=== PATIENT | female | born 1985 | race Caucasian/White ===

== ENCOUNTER 2020-07-18 03:45 | Emergency (ER) | payer MEDICAID, OTHER ==
[2020-07-18] MEDS ORDERED: Aspirin 81 MG Tab.Chew CHEW ONE (03:56)
[2020-07-18] MEDS ORDERED: Ticagrelor 90 MG Tab PO ONE (03:56)
[2020-07-18] MEDS ORDERED: Sodium Chloride 0.9% 10 ML Syringe FLUSH PRN (03:56)
[2020-07-18] MEDS ORDERED: Famotidine 20 MG/2 ML SDV IVPUSH ONE (03:56)
--- NOTE | 2020-07-18 03:56 | EDM.PDOC ---
ED HPI GENERAL MEDICAL PROBLEM - General Chief Complaint: Chest Pain Stated Complaint: chest pain Time Seen by Provider: 07/18/20 03:45 Source of Information: Reports: Patient, Old Records ([facility] chart/EMR) History Limitations: Reports: No Limitations - History of Present Illness INITIAL COMMENTS - FREE TEXT/NARRATIVE: Patient was brought to the emergency room via private automobile by her boyfriend for evaluation of 03/20 retrosternal chest pressure with radiation to her interscapular region and shoulders bilaterally, and the symptoms waking her up at about midnight this evening. No treatment prior to arrival. The patient denies any heart flutter, dizziness, orthostasis, orthopnea, diaphoresis, paresthesias, recent decreased exercise tolerance, or any other anginal-type symptoms. No recent history of abdominal pain, heartburn, nausea, diarrhea, melena, gross hematochezia, or any food intolerance, including fatty foods, etc.. No recent history of gross hematuria, colic, or other UTI symptoms. The patient also denies any recent fever, cough, wheezing, dyspnea, etc.. Onset: Today, Sudden Onset Date: 07/18/20 Onset Time: 00:00 Duration: Constant Location: Reports: Chest, Back, Upper Extremity, Left, Upper Extremity, Right, Radiates to (As above). Denies: Head, Face, Neck, Abdomen, Pelvis Quality: Reports: Pressure Severity: Moderate Improves with: Reports: None Worsens with: Reports: None Context: Reports: Other (As above). Denies: Sick Contact, Trauma Associated Symptoms: Reports: Chest Pain. Denies: Confusion, Cough, Diaphoresis, Fever/Chills, Headaches, Loss of Appetite, Malaise, Nausea/Vomiting, Seizure, Shortness of Breath, Syncope, Weakness Treatments ENGINEERING MATHEMATICIAN: Reports: Other (see below) (None) Middle Chest Pain Score (Numeric/FACES): 6 - Related Data Allergies Allergy/AdvReac Type Severity Reaction Status Date / Time adhesive Allergy Rash Verified 07/18/20 04:09 Latex, Natural Rubber Allergy Rash Verified 07/18/20 04:09 Home Meds: Home Meds Albuterol [Ventolin HFA] 90 mcg INH Q4HR PRN 04/06/14 [History] Megestrol [Megace] 40 mg PO DAILY 04/06/14 [History] Albuterol/Ipratropium [DuoNeb 3.0-0.5 MG/3 ML] 3 ml INH Q4HR PRN #1 box 07/26/18 [Rx] Budesonide/Formoterol [Symbicort 160-4.5 MCG] 2 puff INH BID 07/18/20 [History] FLUoxetine HCl [Prozac] 1 tab PO DAILY 07/18/20 [History] Fluticasone/Vilanterol [Breo Ellipta 100-25 MCG Inhalation Kit] 1 puff INH DAILY 07/18/20 [History] Liraglutide [Victoza] 0.6 mg SUBCUT DAILY 07/18/20 [History] atorvaSTATin Calcium [Lipitor] 1 tab PO DAILY 07/18/20 [History] metFORMIN [Glucophage] 1,000 mg PO DAILY 07/18/20 [History] Past Medical History HEENT History: Reports: Allergic Rhinitis, Other (See Below). Denies: Cataract, Glaucoma, Hard of Hearing, Impaired Vision, Macular Degeneration, Otitis Media, Retinal Detachment Other HEENT History: Patient wears glasses. No diabetic retinopathy. Cardiovascular History: Reports: High Cholesterol, Hypertension. Denies: Aneurysm, Arrhythmia, Blood Clots/VTE/DVT, CAD, Cardiomyopathy, Heart Failure, Heart Murmur, [place], Syncope Respiratory History: Reports: Asthma, Bronchitis, Recurrent, Pneumonia, Recurrent. Denies: COPD, Intubation, Previous, PE, Pneumothorax, Sleep Apnea, TB Gastrointestinal History: Reports: GERD. Denies: Celiac Disease, Cholelithiasis, Fatty Liver, Gastritis, GI Bleed, Hepatitis, Hiatal Hernia, Inflammatory Bowel Disease, Irritable Bowel Syndrome, Jaundice, Pancreatitis, PUD Genitourinary History: Reports: UTI, Recurrent. Denies: Acute Renal Failure, Chronic Renal Insuffiency, Renal Calculus, STD, Urinary Incontinence DIRECTOR OF REVENUE CYCLE MANAGEMENT History: Reports: Dysfunctional Uterine Bleeding. Denies: Endometriosis, Fibroids, , Spontaneous : 0 LMP (Approximate): Other (See Below) Other DIRECTOR OF REVENUE CYCLE MANAGEMENT History: Distant LMP secondary to current Megace therapy for her dysfunctional uterine bleeding. Musculoskeletal History: Reports: Arthritis, Back Pain, Chronic, Fracture, Neck Pain, Chronic, Osteoarthritis, Other (See Below). Denies: Gout, RA, SLE Other Musculoskeletal History: Right wrist fracture on 07/18/2010. Neurological History: Reports: Headaches, Chronic, Migraines, Neuropathy, Diabetic, Neuropathy, Peripheral. Denies: Cerebral Aneurysms, Concussion, CVA, Head Trauma, Seizure, TIA Psychiatric History: Reports: Anxiety, Depression. Denies: Abuse, Victim of, ADD, ADHD, Addiction, Psych Hospitalization(s), PTSD, Suicide Attempt, Suicidal Ideation Endocrine/Metabolic History: Reports: Diabetes, Type II, Obesity/BMI 30+. Denies: Diabetes, Type I, Diabetes Mellitus, Type 3c, Hypothyroidism, IDDM Hematologic History: Reports: Anemia, Iron Deficiency, Other (See Below). Denies: Blood Transfusion(s) Other Hematologic History: Previous iron deficiency anemia secondary to hypermenorrhea. Immunologic History: Reports: None. Denies: AIDS, HIV, SLE Oncologic (Cancer) History: Reports: Cervix, Other (See Below). Denies: Breast, Colon, Hodgkin's Lymphoma, Lymphoma, Non-Hodgkin's Lymphoma, Ovarian, Uterine Other Oncologic History: Precancerous cervical cancer with LEEP procedure as below. Dermatologic History: Reports: None. Denies: Eczema, Psoriasis - Infectious Disease History Infectious Disease History: Reports: Chicken Pox, Influenza (November 2019). Denies: C-Difficile, Measles, Meningitis, Mononucleosis, MRSA, Mumps, Pertussis (Whooping Cough), Rheumatic Fever, Rubella, Scarlet Fever, Shingles, TB, VRE - Past Surgical History Head Surgeries/Procedures: Reports: None HEENT Surgical History: Reports: Oral Surgery, Other (See Below). Denies: Adenoidectomy, Eye Surgery, Laser Surgery, LASIK, Myringotomy w Tube(s), Naso- Sinus Surgery, Tonsillectomy Other HEENT Surgeries/Procedures: [place] teeth extraction x3 at age 26. Cardiovascular Surgical History: Reports: None. Denies: Varicose Respiratory Surgical History: Reports: None. Denies: Thoracentesis GI Surgical History: Reports: EGD, Other (See Below). Denies: Appendectomy, Cholecystectomy, Colonoscopy, Hernia, Abdominal, Hernia, Inguinal, Hernia Repair/Other Other GI Surgeries/Procedures: EGD in October 2013. Female Surgical History: Reports: D&C, LEEP, Other (See Below). Denies: Breast Biopsy, Section, Cervical Conization, Cervical Cryotherapy, Oophorectomy, Salpingo-Oophorectomy, Tubal Ligation Other Female Surgeries/Procedures: D&C in about 2011 secondary to dysfunctional uterine bleeding. LEEP in 2019. Endocrine Surgical History: Reports: None. Denies: Thyroid Biopsy Neurological Surgical History: Reports: None. Denies: C-Spine, Laminectomy, Lumbar Spine, Spinal Fusion, Vertebroplasty Musculoskeletal Surgical History: Reports: Carpal Tunnel, Other (See Below). Denies: Arthroscopic Procedure, Ganglion Cyst, ORIF, Shoulder Replacement Other Musculoskeletal Surgeries/Procedures:: Right carpal tunnel release on 10/30/2005. Oncologic Surgical History: Reports: None Dermatological Surgical History: Reports: None - Past Imaging History Past Imaging History: Reports: CAT Scan (CT scan of the head on 11/22/2017.), PFT (03/30/2014) Social & Family History - Family History HEENT: Reports: None. Denies: Glaucoma, Macular Degeneration, Retinal Detachment Cardiac: Reports: CAD, WI, Other (See Below). Denies: Afib, Aneurysm, Arrhythmia, Blood Clots/VTE/DVT, Heart Failure, High Cholesterol, Hypertension, Syncope Other Cardiac Family History: Maternal grandfather with recurrent MIs with unknown type of heart procedures. Respiratory: Reports: COPD, Sleep Apnea, Other (See Below). Denies: Asthma, PE, Pneumothorax Other Respiratory Family Hisory: Maternal grandfather with COPD with history of tobacco use. Father with sleep apnea. GI: Reports: None. Denies: Celiac Disease, Cholelithiasis, Colon Polyps, GERD, GI bleed, Inflammatory Bowel Disease, Irritable Bowel Syndrome, PUD : Reports: None. Denies: Renal Calculus, Renal Disease/Insufficiency OBGYN: Reports: None. Denies: Endometriosis, Fibroids, Recurrent Spontaneous Musculoskeletal: Reports: None. Denies: Arthritis, Gout, Osteoarthritis, RA, SLE Neurological: Reports: Parkinson's, Other (See Below). Denies: Alzheimers Disease, Cerebral Aneurysms, CVA, Dementia, Migraines, MS, Seizure, TIA Other Neurological Family History: Maternal great grandmother with Parkinson's disease. Psychiatric: Reports: None. Denies: Abuse, Victim of, ADD, ADHD, Anxiety, Depression, Psych Hospitalization(s), PTSD, Suicide Attempt Endocrine/Metabolic: Reports: Diabetes, type II, IDDM, Other (See Below). Denies: Diabetes Mellitus, Type 3c, Hypothyroidism Other Endocrine/Metabolic Family History: Diabetes mellitus and paternal grandfather and multiple paternal aunts and uncles. Paternal great-grandmother with IDDM. Hematologic: Denies: SLE Immunologic: Reports: None. Denies: AIDS, HIV, SLE Dermatologic: Reports: Eczema, Other (See Below). Denies: Psoriasis Other Dermatologic Family History: Mother with eczema Oncologic: Reports: Lung, Other (See Below). Denies: Breast, Cervix, Colon, Hodgkin's Lymphoma, Leukemia, Lymphoma, Skin, Thyroid, Uterine Other Oncologic Family History: Maternal grandfather with fatal lung cancer at age 65 with history of tobacco use. - Tobacco Use Smoking Status *Q: Former Smoker Tobacco Use Within Last Twelve Months: Cigarettes Years of Tobacco use: 16 Packs/Tins Daily: 1 Packs/Tins Daily Comment: Started smoking at age 16 with discontinuing cigarette use at age 32. Used Tobacco, but Quit: Yes Smoking Cessation Information Provided To Patient: No Second Hand Smoke Exposure: Yes Source of Second Hand Smoke Exposure: Significant other Second Hand Smoke Education Provided: Yes - Caffeine Use Caffeine Use: Reports: Coffee (1 cup/month), Soda (3 sodas per week). Denies: Energy Drinks, Tea - Alcohol Use Alcohol Use History: Yes Days Per Week of Alcohol Use: 0 Number of Drinks Per Day: 2 Number of Drinks Per Day Comment: Usually mixed drinks every 2 months. No previous DWIs, problems with alcohol abuse, etc. Total Drinks Per Week: 0 Alcohol Use in Last Twelve Months: Yes - Recreational Drug Use Recreational Drug Use: No Drug Use in Last 12 Months: No Recreational Drug Type: Denies: Amphetamines (Speed), Cocaine, Heroin, Inhalants (Glues, Solvents, Aerosols), LSD (Acid), Marijuana/Hashish, Methamphetamine, Morphine, Oxycodone - Living Situation & Occupation Living situation: Reports: with Significant Other Occupation: Employed ([employer]) ED ROS GENERAL - Review of Systems Review Of Systems: Comprehensive ROS is negative, except as noted in HPI. ED EXAM, GENERAL - Physical Exam Exam: See Below Exam Limited By: No Limitations General Appearance: Alert, WD/WN, No Apparent Distress, Anxious (Mild) Eye Exam: Bilateral Eye: EOMI, Normal Inspection (No nystagmus. Patient wearing glasses), PERRL Ears: Normal External Exam, Normal Canal, Hearing Grossly Normal, Normal TMs Nose: Normal Inspection, Normal Mucosa, No Blood Throat/Mouth: Normal Inspection, Normal Lips, Normal Teeth, Normal Gums, Normal Oropharynx, Normal Voice, No Airway Compromise. No: Dysphagia, Perioral Cyanosis Head: Atraumatic, Normocephalic. No: Facial Swelling, Facial Tenderness, Sinus Tenderness Neck: Normal Inspection, Supple, Non-Tender, Full Range of Motion. No: Carotid Bruit, Lymphadenopathy (L), Lymphadenopathy (R), Thyromegaly Respiratory/Chest: No Respiratory Distress, No Accessory Muscle Use, Chest Non- Tender, Rales (Mild bilateral basilar, right greater than left). No: Pleural Rub, Retractions Cardiovascular: Normal Peripheral Pulses, Regular Rate, Rhythm, No Edema, No Gallop, No JVD, No Murmur, No Rub. No: Gallop/S3, Gallop/S4, Friction Rub Peripheral Pulses: 2+: Radial (L), Radial (R), Dorsalis Pedis (L), Dorsalis Pedis (R) GI/Abdominal: Normal Bowel Sounds, Soft, Non-Tender, No Organomegaly, No Distention, No Abnormal Bruit, No Mass, Pelvis Stable, Other (Obese). No: Guarding (Female) Exam: Deferred Rectal (Female) Exam: Deferred Back Exam: Normal Inspection, Full Range of Motion. No: CVA Tenderness (L), CVA Tenderness (R), Muscle Spasm Extremities: Normal Inspection, Normal Range of Motion, Non-Tender, No Pedal Edema, Normal Capillary Refill. No: Eugenie's Sign Neurological: Alert, Oriented, CN II-XII Intact, Normal Cognition, Normal Gait, Normal Reflexes (Negative Babinski's), No Motor/Sensory Deficits Psychiatric: Anxious (Mild), Depressed Mood (Borderline) Skin Exam: Warm, Dry, Intact, Normal Color, No Rash, Stud(s) (Left auricular), Tattoo(s) (Multiple). No: Diaphoretic Lymphatic: No Adenopathy EKG INTERPRETATION EKG Date: 07/18/20 Time: 03:46 Rhythm: NSR Rate (Beats/Min): 79 [place]: Normal (Neutral cardiac axis) P-Wave: Present (With improvement of previous moderate biphasic P waves) QRS: Normal (0.08 seconds with mild repolarization changes) ST-T: Normal (With resolution of previous T wave inversion in leads V1 and III.) QT: Normal [place]/PQ Interval: 0.15 seconds with improvement/resolution of previous short [place] interval. New pulmonary hypertension by EKG. Comparison: Change From Previous EKG (As above since 04/06/2014) EKG Interpretation Comments: 1. No acute ischemic changes 2. Pulmonary hypertension by EKG Course - Vital Signs Last Recorded V/S: Last Vital Signs Temp 36.3 C 07/18/20 03:56 Pulse 81 07/18/20 04:30 Resp 17 07/18/20 04:30 BP 133/76 07/18/20 04:30 Pulse Ox 99 07/18/20 04:30 Vital Signs - 24 hr 07/18/20 07/18/20 03:56 04:30 Temperature [ 36.3 C Tympanic] Pulse, 78 81 Peripheral [ Apical] Respiratory 14 17 Rate Blood Pressure 131/85 133/76 [Left Upper Arm ] O2 Sat by Pulse 100 99 Oximetry - Orders/Labs/Meds Orders: Active Orders 24 hr Category Date Time Status Cardiac Monitoring [RC] . DIRECTED Care 07/18/20 03:56 Active EKG Documentation Completion [RC] ASDIRECTED Care 07/18/20 03:56 Active Influenza Vaccine Charge [RC] .DISCHARGE Care 07/18/20 04:58 Active Oxygen Therapy, ED [RC] PRN Care 07/18/20 03:56 Active Peripheral IV Care [RC] . DIRECTED Care 07/18/20 03:56 Active Pulse Oximetry [RC] CONTINUOUS Care 07/18/20 03:56 Active Up With Assistance [RC] PFP Care 07/18/20 03:56 Active Vital Signs [RC] PFP Care 07/18/20 03:56 Active Nothing per Oral Now Diet [DIET] Diet 07/18/20 Breakfast Active Chest 1V Frontal [CR] Stat Exams 07/18/20 03:56 Taken CORONAVIRUS COVID-19 MARTHA [MOLEC] Urgent Lab 07/18/20 04:20 Received Sodium Chloride 0.9% [Saline Flush] Med 07/18/20 03:56 Active 10 ml FLUSH ASDIRECTED PRN Isolation [COMM] Routine Oth 07/18/20 04:15 Active Obtain Past Medical Record [OM.PC] Urgent Oth 07/18/20 03:56 Active Peripheral IV Insertion Adult [OM.PC] Stat Oth 07/18/20 03:56 Ordered Resuscitation Status Stat Resus Stat 07/18/20 03:56 Ordered Medication Orders Sodium Chloride (Saline Flush) 10 ml FLUSH ASDIRECTED PRN PRN Reason: Keep Vein Open Labs: Laboratory Tests 07/18/20 07/18/20 07/18/20 Range/Units 04:00 04:00 04:00 WBC 8.5 (4.0-10.2) K/uL RBC 5.18 H (3.77-5.09) M/uL Hgb 14.9 (11.7-15.5) g/dL Hct 44.5 (34.0-46.0) % MCV 85.9 (84.0-98.0) fL MCH 28.8 (28.2-33.3) pg MCHC 33.5 (31.7-36.0) g/dL RDW 13.4 (11.2-14.1) % Plt Count 325 (150-350) K/uL Neut % (Auto) 61.4 (45.0-80.0) % Lymph % (Auto) 27.9 (10.0-50.0) % Hart[place] % (Auto) 8.4 (2.0-14.0) % Eos % (Auto) 2.1 (0.0-5.0) % Baso % (Auto) 0.2 (0.0-2.0) % Neut # (Auto) 5.22 (1.40-7.00) K/uL Lymph # (Auto) 2.37 (0.50-3.50) K/uL Hartley # (Auto) 0.71 (0.00-1.00) K/uL Eos # (Auto) 0.18 (0.00-0.50) K/uL Baso # (Auto) 0.02 (0.00-0.20) K/uL PT 11.8 (9.5-12.0) SEC INR 1.2 APTT 27.3 (24.5-32.8) SEC D-Dimer, Quantitative < 100 (0-400) ng/mL Sodium (136-145) mmol/L Potassium (3.5-5.1) mmol/L Chloride (98-107) mmol/L Carbon Dioxide (21.0-32.0) mmol/L BUN (7-18) mg/dL Creatinine (0.51-1.17) mg/dL Est Cr Clr Drug Dosing Estimated GFR (MDRD) mL/min Glucose (74-106) mg/dL Lactic Acid (0.4-2.0) mmol/L Uric Acid (2.6-7.2) mg/dL Calcium (8.5-10.1) mg/dL Magnesium (1.8-2.4) mg/dL Total Bilirubin (0.2-1.0) mg/dL AST (15-37) U/L ALT (12-78) U/L Alkaline Phosphatase (46-116) IU/L Creatine Kinase (26-308) U/L Creatine Kinase Index (0.0-2.5) % CK-MB (CK-2) (0.00-3.60) ng/mL Troponin I (0.000-0.056) ng/mL NT-Pro-B Natriuret Pep (0-125) pg/mL Total Protein (6.4-8.2) g/dL Albumin (3.4-5.0) g/dL TSH, Ultra Sensitive (0.358-3.740) mIU/mL HCG, Qual (NEGATIVE) 07/18/20 07/18/20 07/18/20 Range/Units 04:00 04:00 04:00 WBC (4.0-10.2) K/uL RBC (3.77-5.09) M/uL Hgb (11.7-15.5) g/dL Hct (34.0-46.0) % MCV (84.0-98.0) fL MCH (28.2-33.3) pg MCHC (31.7-36.0) g/dL RDW (11.2-14.1) % Plt Count (150-350) K/uL Neut % (Auto) (45.0-80.0) % Lymph % (Auto) (10.0-50.0) % [place] % (Auto) (2.0-14.0) % Eos % (Auto) (0.0-5.0) % Baso % (Auto) (0.0-2.0) % Neut # (Auto) (1.40-7.00) K/uL Lymph # (Auto) (0.50-3.50) K/uL [place] # (Auto) (0.00-1.00) K/uL Eos # (Auto) (0.00-0.50) K/uL Baso # (Auto) (0.00-0.20) K/uL PT (9.5-12.0) SEC INR APTT (24.5-32.8) SEC D-Dimer, Quantitative (0-400) ng/mL Sodium 137 (136-145) mmol/L Potassium 3.8 (3.5-5.1) mmol/L Chloride 103 (98-107) mmol/L Carbon Dioxide 22.1 (21.0-32.0) mmol/L BUN 12 (7-18) mg/dL Creatinine 0.58 (0.51-1.17) mg/dL Est Cr Clr Drug Dosing TNP Estimated GFR (MDRD) > 60 mL/min Glucose 103 (74-106) mg/dL Lactic Acid 1.0 (0.4-2.0) mmol/L Uric Acid 5.1 (2.6-7.2) mg/dL Calcium 8.6 (8.5-10.1) mg/dL Magnesium 1.9 (1.8-2.4) mg/dL Total Bilirubin 0.4 (0.2-1.0) mg/dL AST 16 (15-37) U/L ALT 32 (12-78) U/L Alkaline Phosphatase 84 (46-116) IU/L Creatine Kinase 62 (26-308) U/L Creatine Kinase Index 0.5 (0.0-2.5) % CK-MB (CK-2) 0.30 (0.00-3.60) ng/mL Troponin I 0.000 (0.000-0.056) ng/mL NT-Pro-B Natriuret Pep 14 (0-125) pg/mL Total Protein 7.6 (6.4-8.2) g/dL Albumin 3.4 (3.4-5.0) g/dL TSH, Ultra Sensitive 3.732 (0.358-3.740) mIU/mL HCG, Qual Negative (NEGATIVE) COVID-19 collected with results pending Microbiology 07/18/20 04:20 Influenza Type A Antigen Screen - Final Nasal, Unspecified NEGATIVE INFLUENZA A VIRUS AG REFERENCE RANGE: NEGATIVE Influenza Type B Antigen Screen - Final NEGATIVE INFLUENZA B VIRUS AG REFERENCE RANGE: NEGATIVE Meds: Medications Generic Name Dose Route Start Last Admin Trade Name Ponchoq PRN Reason Stop Dose Admin Sodium Chloride 10 ml 07/18/20 03:56 Saline Flush FLUSH ASDIRECTED PRN Keep Vein Open Discontinued Medications Generic Name Dose Route Start Last Admin Trade Name Freq PRN Reason Stop Dose Admin Aspirin 324 mg 07/18/20 03:56 07/18/20 04:11 Aspirin CHEW 07/18/20 03:57 324 mg ONETIME ONE Administration Famotidine 40 mg 07/18/20 03:56 07/18/20 04:11 Pepcid IVPUSH 07/18/20 03:57 40 mg ONETIME ONE Administration Influenza Virus Vaccine 60 mcg 07/18/20 04:56 07/18/20 05:07 Afluria Quad 2020-21 (3yr Up) IM 07/18/20 04:57 60 mcg .ONCE ONE Administration Ticagrelor 180 mg 07/18/20 03:56 07/18/20 04:12 Brilinta PO 07/18/20 03:57 180 mg ONETIME ONE Administration - Radiology Interpretation Free Text/Narrative:: telemetry technician shows normal sinus rhythm with heart rate in the 80s with no ectopy or arrhythmia. Chest x-ray, portable, shows mild to moderate pulmonary obstructive disease with possible atelectasis versus mild beginning right middle lobe and right perihilar infiltrates but no pneumothorax, cardiomegaly, CHF, etc.. Official x- ray report was negative for infiltrates. Departure - Departure Time of Disposition: 05:06 Disposition: Against Medical Advice 07 Condition: Good Clinical Impression: Tobacco abuse counseling, Obesity (BMI 30-39.9), Peptic reflux disease, Mixed anxiety depressive disorder Chest pain Qualifiers: Chest pain type: precordial pain Qualified Code(s): R07.2 - Precordial pain Asthma Qualifiers: Asthma severity: mild Asthma persistence: intermittent Asthma complication type: uncomplicated Qualified Code(s): J45.20 - Mild intermittent asthma, uncomplicated Diabetes mellitus Qualifiers: Diabetes mellitus type: type 2 Diabetes mellitus assistant merchandiser insulin use: without retirement use Diabetes mellitus complication status: with neurologic complications Diabetes mellitus complication detail: with unspecified neuropathy Qualified Code(s): E11.40 - Type 2 diabetes mellitus with diabetic neuropathy, unspecified Osteoarthritis Qualifiers: Osteoarthritis location: multiple joints Osteoarthritis type: primary Qualified Code(s): M89.49 - Other hypertrophic osteoarthropathy, multiple sites Instructions: Steps to Quit Smoking, [id number], Health Risks of Smoking, Nonspecific Chest Pain, Adult, [id number], Preventing Exposure to Secondhand Smoke, Adult Referrals: PCP,None [Primary Care Provider] - Forms: ED Department Discharge, ED Return to Work/School Form Additional Instructions: 1. Followup with your regular provider in 10-14 days as directed with your regular provider later today for reevaluation and recommended repeat troponin I, CK, CK-MB, cardiac index, and EKG. Bring these discharge instructions with you to that visit. 2. 50% maximum exercise restriction until released by your regular provider 3. Consider outpatient Cardiolite stress test ESAU with this to be discussed with your regular provider 4. Work excuse- See Form 5. Stop all tobacco exposure ESAU as directed with counselling, information, etc. given at discharge. 6. Immediately after this visit verify that your cellular telephone's voicemail has been activated and is empty. Also verify that your home telephone's answering machine is operating properly and has space to receive messages. Note that it is sometimes necessary for us to be able to contact you at a later date to discuss your medical care. 7. Please remember that we are ALWAYS here for you and want to answer any questions you may have. Feel free to call the hospital any time and we call you back ESAU. 8. Maintain recommended quarantine until you have been notified of today's COVID-19 test results as discussed with return to previous social distancing, use of masks, etc., thereafter as per current recommended CDC guidelines Sepsis Event Note (ED) - Focused Exam Vital Signs: Vital Signs Temp Pulse Resp BP Pulse Ox 07/18/20 04:30 81 17 133/76 99 07/18/20 03:56 36.3 C 78 14 131/85 100 - Problem List & Annotations (1) Chest pain SNOMED Code(s): 10624462 Code(s): R07.9 - CHEST PAIN, UNSPECIFIED Status: Acute Priority: High Current Visit: Yes Onset Date: 07/18/20 Annotation/Comment:: Chest pain protocol initiated upon patient's arrival to the emergency room. She refuses further hospitalization for rule out of WI with patient leaving AMA. She was counseled extensively concerning the risks of this decision. Close follow-up by regular provider as per discharge instructions. Outpatient Cardiolite stress test recommended secondary to cardiac risk factors. Work excuse provided. Qualifiers: Chest pain type: precordial pain Qualified Code(s): R07.2 - Precordial pain (2) Asthma SNOMED Code(s): 263373467 Code(s): J45.909 - UNSPECIFIED ASTHMA, UNCOMPLICATED Status: Chronic Priority: Medium Current Visit: Yes Annotation/Comment:: Stable by history. Note right perihilar and right middle lobe atelectasis as above with no leukocytosis, fever, and normal lactic acid level. Observe for now. Influenza screen was negative. COVID-19 screen is pending with patient to be notified of results later today. Qualifiers: Asthma severity: mild Asthma persistence: intermittent Asthma complication type: uncomplicated Qualified Code(s): J45.20 - Mild intermittent asthma, uncomplicated (3) Tobacco abuse counseling SNOMED Code(s): 183008383, 135093617, 485886970 Code(s): Z71.6 - TOBACCO ABUSE COUNSELING Status: Chronic Priority: Medium Current Visit: Yes Annotation/Comment:: Tobacco cessation information provided for the patient significant other. (4) Diabetes mellitus SNOMED Code(s): 83156068 Code(s): E11.9 - TYPE 2 DIABETES MELLITUS WITHOUT COMPLICATIONS Status: Chronic Priority: Medium Current Visit: Yes Annotation/Comment:: Stable by history with good random glucose today. Qualifiers: Diabetes mellitus type: type 2 Diabetes mellitus assistant merchandiser insulin use: without retirement use Diabetes mellitus complication status: with neurologic complications Diabetes mellitus complication detail: with unspecified neuropathy Qualified Code(s): E11.40 - Type 2 diabetes mellitus with diabetic neuropathy, unspecified (5) Osteoarthritis SNOMED Code(s): 548160263 Code(s): M19.90 - UNSPECIFIED OSTEOARTHRITIS, UNSPECIFIED SITE Status: Chronic Priority: Medium Current Visit: Yes Annotation/Comment:: Stable by history Qualifiers: Osteoarthritis location: multiple joints Osteoarthritis type: primary Qualified Code(s): M89.49 - Other hypertrophic osteoarthropathy, multiple sites (6) Obesity (BMI 30-39.9) SNOMED Code(s): 690828489, 096981242 Code(s): E66.9 - OBESITY, UNSPECIFIED Status: Chronic Priority: Medium Current Visit: Yes Annotation/Comment:: Weight loss in moderation advisable (7) Peptic reflux disease SNOMED Code(s): 172841567 Code(s): K21.9 - GASTRO-ESOPHAGEAL REFLUX DISEASE WITHOUT ESOPHAGITIS Status: Chronic Priority: Medium Current Visit: Yes Annotation/Comment:: High-dose IV Pepcid given as GI prophylaxis as per chest pain protocol. No current symptoms. (8) Mixed anxiety depressive disorder SNOMED Code(s): 531339342 Code(s): F41.8 - OTHER SPECIFIED ANXIETY DISORDERS Status: Chronic Priority: Medium Current Visit: Yes Annotation/Comment:: Moderate control based on today's exam. Continue to observe closely by her regular provider. - Problem List Review Problem List Initiated/Reviewed/Updated: Yes - My Orders Last 24 Hours: My Active Orders 07/18/20 03:56 Cardiac Monitoring [RC] . DIRECTED EKG Documentation Completion [RC] ASDIRECTED Oxygen Therapy, ED [RC] PRN Peripheral IV Care [RC] . DIRECTED Pulse Oximetry [RC] CONTINUOUS Up With Assistance [RC] PFP Vital Signs [RC] PFP Chest 1V Frontal [CR] Stat Sodium Chloride 0.9% [Saline Flush] 10 ml FLUSH ASDIRECTED PRN Obtain Past Medical Record [OM.PC] Urgent Peripheral IV Insertion Adult [OM.PC] Stat Resuscitation Status Stat 07/18/20 04:15 Isolation [COMM] Routine 07/18/20 04:20 CORONAVIRUS COVID-19 MARTHA [MOLEC] Urgent 07/18/20 04:58 Influenza Vaccine Charge [RC] .DISCHARGE 07/18/20 Breakfast Nothing per Oral Now Diet [DIET] - Assessment/Plan Last 24 Hours: My Active Orders 07/18/20 03:56 Cardiac Monitoring [RC] . DIRECTED EKG Documentation Completion [RC] ASDIRECTED Oxygen Therapy, ED [RC] PRN Peripheral IV Care [RC] . DIRECTED Pulse Oximetry [RC] CONTINUOUS Up With Assistance [RC] PFP Vital Signs [RC] PFP Chest 1V Frontal [CR] Stat Sodium Chloride 0.9% [Saline Flush] 10 ml FLUSH ASDIRECTED PRN Obtain Past Medical Record [OM.PC] Urgent Peripheral IV Insertion Adult [OM.PC] Stat Resuscitation Status Stat 07/18/20 04:15 Isolation [COMM] Routine 07/18/20 04:20 CORONAVIRUS COVID-19 MARTHA [MOLEC] Urgent 07/18/20 04:58 Influenza Vaccine Charge [RC] .DISCHARGE 07/18/20 Breakfast Nothing per Oral Now Diet [DIET] Assessment:: As above Plan: As above. Extensive precautions were given to the patient, who is in agreement with the treatment plan. See Patient Instructions for further treatment and plan. Note patient left AMA as above.
[2020-07-18 04:27] LABS: PTT,PARTIAL THROMBOPLSTIN TIME 27.3 SEC (24.5-32.8)
[2020-07-18 04:40] LABS: CHLORIDE,CL 103 mmol/L (98-107); SODIUM,NA 137 mmol/L (136-145)
[2020-07-18] MEDS ORDERED: FLU Vacc QS2020-21 36MOS UP/PF 60 MCG/0.5 ML Syringe IM ONE (04:56)
== END 2020-07-18 05:10 | disposition left against medical advice (07) ==
LOC: LL.ED 03:45
DX: J45.20 Mild intermittent asthma, uncomplicated (principal); R07.2 Precordial pain; Z71.6 Tobacco abuse counseling; K21.9 Gastro-esophageal reflux disease without esophagitis; E66.9 Obesity, unspecified; F41.8 Other specified anxiety disorders; E78.00 Pure hypercholesterolemia, unspecified; I10 Essential (primary) hypertension; J45.909 Unspecified asthma, uncomplicated; E11.42 Type 2 diabetes mellitus with diabetic polyneuropathy; Z91.048 Other nonmedicinal substance allergy status; Z91.040 Latex allergy status; Z79.899 Other long term (current) drug therapy; Z79.84 Long term (current) use of oral hypoglycemic drugs; Z87.891 Personal history of nicotine dependence; Z20.828 Contact with and (suspected) exposure to other viral communicable diseases; Z23 Encounter for immunization
CPT/HCPCS: 36415; 71045; 80053; 82550; 82553; 83605; 83735; 83880; 84443; 84484; 84550; 84703; 85025; 85379; 85610; 85730; 87635; 87804; 90471; 90686; 93005; 96374; 99285; A9270; J3490; 93010; 99284; G0008; U0002

== ENCOUNTER 2022-04-15 06:23 | Emergency (ER) | payer MEDICAID | END 2022-04-15 07:35 | disposition home or self-care (01) | LOC: LL.ED 06:23 | DX: M54.9 Dorsalgia, unspecified (principal); G89.29 Other chronic pain; M79.7 Fibromyalgia; I10 Essential (primary) hypertension; E78.00 Pure hypercholesterolemia, unspecified; K21.9 Gastro-esophageal reflux disease without esophagitis; M19.90 Unspecified osteoarthritis, unspecified site; E11.9 Type 2 diabetes mellitus without complications; E66.9 Obesity, unspecified; F41.9 Anxiety disorder, unspecified; F32.A Depression, unspecified; Z79.899 Other long term (current) drug therapy; Z79.84 Long term (current) use of oral hypoglycemic drugs; Z91.048 Other nonmedicinal substance allergy status | CPT/HCPCS: 99283 ==